=== PATIENT | female | born 1945 | race Two or more races ===

== ENCOUNTER 2018-11-26 11:52 | Outpatient (CLI) | payer OTHER | END 2018-11-26 14:30 | disposition home or self-care (01) | LOC: RAD 11:52 | DX: M25.561 Pain in right knee (principal); M25.461 Effusion, right knee ==

== ENCOUNTER → 2019-10-01 | Emergency (ER) | payer OTHER ==
[~2019-10-01] VITALS: Ht 154.9 cm; Wt 65.8 kg
== END | disposition left against medical advice (07) ==
LOC: ER 18:04
DX: Z53.20 Procedure and treatment not carried out because of patient's decision for unspecified reasons (principal)

== ENCOUNTER 2022-04-04 07:18 | Outpatient (CLI) | payer OTHER | END 2022-04-04 07:19 | disposition home or self-care (01) | LOC: NUCLEAR 07:18 | PROVIDERS: ATTEND Internal Medicine | DX: I25.9 Chronic ischemic heart disease, unspecified (principal) | CPT/HCPCS: 78452; 93017; A9500; J0153 ==

== ENCOUNTER 2024-06-25 13:24 | Outpatient (CLI) | payer OTHER | END 2024-06-25 13:35 | disposition home or self-care (01) | LOC: TOM 13:24 | PROVIDERS: ATTEND Family Medicine | DX: M25.551 Pain in right hip (principal) ==